=== PATIENT | male | born 2000 | race Caucasian/White ===

== ENCOUNTER 2019-02-07 22:09 | Emergency (ER) | payer OTHER ==
[2019-02-07] MEDS ORDERED: methylPREDNISolone SOD SUCC 125 MG/2 ML VIAL IVP ONE (22:21)
[2019-02-07] MEDS ORDERED: NS 1,000 ML IV ONE (22:21)
[2019-02-07] MEDS ORDERED: IPRATROPIUM/ALBUTEROL 3 ML DEYVIAL IH ONE (22:21)
--- NOTE | 2019-02-07 22:23 | EDPHY ---
H & P Stated Complaint: COUGH AND SOC X5 WEEKS. SEEN AT [facility] 2 DAYS ON [facility]-PAC Time Seen by Provider: 02/07/19 22:21 HPI/ROS: HPI CHIEF COMPLAINT: Shortness of breath, cough. HISTORY OF PRESENT ILLNESS: 18-year-old male, presents emergency room with a cough. He states been sick for 5 weeks. The cough has gotten worse. At times he reports clear sputum and at times he says that he seen some streaks of blood in it. [facility] really has not gotten any better. He has subjective chills and fever at times. He states he has an albuterol inhaler, also took a course of Z-Oscar. He states he has been on for 5 weeks. Denies chest pain, denies significant shortness of breath. Does state when he goes to work out his coughing spells get worse. Past Medical History: Denies significant medical history Past Surgical History: Denies significant surgical history Social History: Smokes marijuana. Denies other illicit drugs or alcohol. Family History: Noncontributory ROS REVIEW OF SYSTEMS: 10 Systems were reviewed and negative with the exception of the elements mentioned in the history of present illness. Exam Constitutional triage nursing summary reviewed, vital signs reviewed, awake/ alert. Vital signs stable no distress. Eyes normal conjunctivae and sclera, EOMI, PERRLA. HENT normal inspection, atraumatic, moist mucus membranes, no epistaxis, neck supple/ no meningismus, no raccoon eyes. Respiratory bronchitic sounding cough on exam faint wheezing bilaterally. No distress. Cardiovascular rate normal, regular rhythm, no murmur, no edema, distal pulses normal. Gastrointestinal soft, non-tender, no rebound, no guarding, normal bowel sounds, no distension, no pulsatile mass. Genitourinary no CVA tenderness. Musculoskeletal no midline vertebral tenderness, full range of motion, no calf swelling, no tenderness of extremities, no meningismus, good pulses, neurovascularly intact. Skin pink, warm, & dry, no rash, skin atraumatic. Neurologic awake, alert and oriented x 3, AAOx3, moves all 4 extremities equally, motor intact, sensory intact, CN II-XII intact, normal cerebellar, normal vision, normal speech. Psychiatric normal mood/affect. Heme/Lymph/Immune no lymphadenopathy. Differential Diagnosis: Includes but is not limited to in a particular order viral syndrome, URI, bronchitis, viral pneumonia, bacterial pneumonia Medical Decision Making: Plan for this patient IV establishment with IV fluid bolus, DuoNeb breathing treatment, basic labs, chest x-ray and re-evaluate. Re-evaluation: Chest x-ray negative for acute cardiopulmonary disease. 0106AM: Patient D-dimer negative. Chest x-ray shows no evidence of acute cardiopulmonary disease. Patient re-evaluated at 1:07 a.m.: Patient is resting comfortably he denies any complaints at this time infected feels much better after DuoNeb breathing treatment. He would like to go home. Plan will be for treatment for acute bronchitis, there could possibly be a small bacterial infection superimposed on his lungs. I will start on Augmentin, prednisone, albuterol 2 puffs every 4 hr as needed for shortness of breath cough wheezing. The patient does understand return emergency room if there is worsening symptoms. Source: Patient - Personal History Current Tetanus/Diphtheria Vaccine: Yes Current Tetanus Diphtheria and Acellular Pertussis (TDAP): Yes - Medical/Surgical History Hx Asthma: No Hx Chronic Respiratory Disease: No Hx Diabetes: No Hx Cardiac Disease: No Hx Renal Disease: No Hx Cirrhosis: No Hx Alcoholism: No Hx HIV/AIDS: No Hx Splenectomy or Spleen Trauma: No Other PMH: DENIES - Social History Smoking Status: Current every day smoker Constitutional: Initial Vital Signs Temperature (C) 36.6 C 02/07/19 22:11 Heart Rate 101 H 02/07/19 22:11 Respiratory Rate 20 02/07/19 22:11 Blood Pressure 113/82 H 02/07/19 22:11 O2 Sat (%) 93 02/07/19 22:11 O2 Delivery Mode Room Air Allergies/Adverse Reactions: No Known Allergies Allergy (Unverified 02/07/19 22:15) Home Medications: Medication Instructions Recorded Amoxicillin/Clavulanate Pot 875 mg PO BID #14 tab 02/07/19 [Augmentin 875 MG TAB (*)] Azithromycin 500 mg PO 02/07/19 predniSONE 60 mg PO DAILY #15 tab 02/07/19 Medical Decision Making - Diagnostics Imaging Results: Imaging Impressions Chest X-Ray 02/07/19 22:21 Impression: Normal. - Data Points Laboratory Results: Laboratory Results 02/07/19 22:35 02/07/19 22:35 02/07/19 02/07/19 02/07/19 22:35 22:35 22:35 WBC 16.37 10^3/uL H 10^3/uL (3.80-9.50) RBC 5.03 10^6/uL 10^6/uL (4.40-6.38) Hgb 14.9 g/dL g/dL (13.7-17.5) Hct 44.4 % % (40.0-51.0) MCV 88.3 fL fL (81.5-99.8) MCH 29.6 pg pg (27.9-34.1) MCHC 33.6 g/dL g/dL (32.4-36.7) RDW 12.7 % % (11.5-15.2) Plt Count 284 10^3/uL 10^3/uL (150-400) MPV 10.0 fL fL (8.7-11.7) Neut % (Auto) 84.2 % H % (39.3-74.2) Lymph % (Auto) 8.7 % L % (15.0-45.0) Barron % (Auto) 5.9 % % (4.5-13.0) Eos % (Auto) 0.4 % L % (0.6-7.6) Baso % (Auto) 0.4 % % (0.3-1.7) Nucleat RBC Rel Count 0.0 % % (0.0-0.2) Absolute Neuts (auto) 13.78 10^3/uL H 10^3/uL (1.70-6.50) Absolute Lymphs (auto) 1.43 10^3/uL 10^3/uL (1.00-3.00) Absolute Monos (auto) 0.96 10^3/uL H 10^3/uL (0.30-0.80) Absolute Eos (auto) 0.07 10^3/uL 10^3/uL (0.03-0.40) Absolute Basos (auto) 0.07 10^3/uL 10^3/uL (0.02-0.10) Absolute Nucleated RBC 0.00 10^3/uL 10^3/uL (0-0.01) Immature Gran % 0.4 % % (0.0-1.1) Immature Gran # 0.06 10^3/uL 10^3/uL (0.00-0.10) D-Dimer 0.39 ug/mLFEU ug/mLFEU (0.00-0.50) Sodium 141 mEq/L mEq/L (135-145) Potassium 4.4 mEq/L mEq/L (3.5-5.2) Chloride 104 mEq/L mEq/L (97-110) Carbon Dioxide 26 mEq/l mEq/l (22-31) Anion Gap 11 mEq/L mEq/L (6-14) BUN 18 mg/dL mg/dL (7-23) Creatinine 0.9 mg/dL mg/dL (0.7-1.3) Estimated GFR > 60 Glucose 89 mg/dL mg/dL (70-100) Calcium 9.5 mg/dL mg/dL (8.5-10.4) NT-Pro-B Natriuret Pep 27 pg/mL pg/mL (0-125) Medications Given: Discontinued Medications Albuterol/Ipratropium (Duoneb) 3 ml IH EDNOW ONE Stop: 02/07/19 22:22 Last Admin: 02/07/19 22:31 Dose: 3 ml Sodium Chloride (Ns) 1,000 mls @ 0 mls/hr IV EDNOW ONE; Wide Open PRN Reason: Protocol Stop: 02/07/19 22:22 Last Admin: 02/07/19 22:34 Dose: 1,000 mls Methylprednisolone Sodium Succinate (Solu-Medrol) 125 mg IVP EDNOW ONE Stop: 02/07/19 22:22 Last Admin: 02/07/19 22:34 Dose: 125 mg Departure - Departure Disposition: Home, Routine, Self-Care Clinical Impression: Acute bronchitis Condition: Good Instructions: Acute Bronchitis (ED) Additional Instructions: 1. Stay well-hydrated drink lots of fluids. 2. Do not smoke. 3. Return to the emergency room if you have worsening symptoms Referrals: Patient,NotPresent [Unknown] - As per Instructions Prescriptions: Amoxicillin/Clavulanate Pot [Augmentin 875 MG TAB (*)] 875 mg PO BID #14 tab predniSONE 60 mg PO DAILY #15 tab
[2019-02-07 23:35] LABS: PLATELET COUNT 284 10^3/uL (150-400)
[2019-02-08] MEDS ORDERED: AMOXICILLIN/CLAVULANATE POT 875/125 MG TAB PO ONE (01:00)
[2019-02-08] MEDS ORDERED: ALBUTEROL INH PREPACK MDI TAKEHOME ONE (01:09)
[2019-02-08 01:19] VITALS: BP 121/76
== END 2019-02-08 01:19 | disposition home or self-care (01) ==
DX: J20.9 Acute bronchitis, unspecified (principal); E86.9 Volume depletion, unspecified; F17.200 Nicotine dependence, unspecified, uncomplicated
CPT/HCPCS: 96374; J2930